=== PATIENT | male | born 1965 | race Hispanic/Latino ===

== ENCOUNTER 2025-02-23 15:14 | Emergency (ER) | payer MEDICAID ==
[~2025-02-23] VITALS: Ht 154.9 cm; Wt 84.4 kg
[2025-02-23] MEDS ORDERED: TRIAMCINOLONE A15 G1 TOP (15:31)
[2025-02-23 15:33] VITALS: PULSE 71; RESP 20; TEMP 98.4
[2025-02-23 15:48] VITALS: BP 153/87; O2SAT 100
== END 2025-02-23 15:35 | disposition home or self-care (01) ==
LOC: FSED 15:18
DX: L25.9 Unspecified contact dermatitis, unspecified cause (principal)
CPT/HCPCS: 99282